=== PATIENT | female | born 1940 | race Caucasian/White ===

== ENCOUNTER 2017-06-30 10:41 | Emergency (ER) | payer MEDICARE ==
[~2017-06-30] VITALS: Ht 152.4 cm; Wt 47.7 kg
[2017-06-30] MEDS ORDERED: FENTANYL50 MCG/HR TD ×2 (11:00→11:32)
[2017-06-30] MEDS ORDERED: CYMBALTA30 MG PO (11:01)
[2017-06-30] MEDS ORDERED: LYRICA75 MG PO (11:01)
[2017-06-30] MEDS ORDERED: CYCLOBENZAPRINE5 MG PO (11:44)
[2017-06-30 11:45] VITALS: BP 149/84
== END 2017-06-30 11:45 | disposition home or self-care (01) ==
LOC: ED 10:41
DX: G89.29 Other chronic pain (principal); M54.5 Low back pain; M62.830 Muscle spasm of back; Z76.0 Encounter for issue of repeat prescription; M41.9 Scoliosis, unspecified; M79.604 Pain in right leg